=== PATIENT | male | born 1945 | race Caucasian/White ===

== ENCOUNTER → 2018-01-26 | Day surgery (SDC) | payer OTHER ==
[~2018-01-26] VITALS: Ht 190.5 cm; Wt 107.6 kg
[~2018-01-26] MED LIST: ACETAMINOPHEN 1000 MG/100 ML 100 ML IV ONE; BUPIVACAINE/EPINEPHRINE 0.5% PF 30 ML VIAL ONE; CHLORHEXIDINE GLUCONATE 2 % 1 PACK (2 CLOTHS) TOPICAL PRN; CYCL10TA PO; DEXAMETHASONE SOD PHOS 4 MG/ML VIAL IV ONE; GLYCOPYRROLATE 1 MG/5 ML SYRINGE IV PUSH ONE; LABETALOL HCL 100 MG/20 ML VIAL IV ONE; LACTATED RINGER'S 1000 ML INJ 1,000 ML IV ONE; LACTATED RINGER'S 1000 ML IV PRN; LIDOCAINE HCL 1% PF 5 ML SYRINGE OTHER ONE; METOPROLOL TARTRATE 25 MG TAB PO PRN; MIDAZOLAM HCL 2 MG/2 ML VIAL ONE; MORPHINE SULFATE 4 MG/ML INJ ONE; NEOSTIGMINE 5 MG/5 ML SYRINGE IV PUSH ONE; NORC5TAB PO; ONDANSETRON HCL 4 MG/2 ML VIAL IV PUSH ONE; PANT40TA3 PO; PHENYLEPH/NS 1000 MCG/10 ML SYR IV ONE; POVIDONE IODINE 5% (ANTISEPSIS KIT) 4 APPLICATIONS EACH NARE PRN; PROPOFOL 200 MG/20 ML AMP IV ONE; ROCURONIUM INJ 50 MG/5 ML SYRINGE IV PUSH ONE; SODIUM CHLORID 0.9% 500 ML IV PRN; ceFAZolin 2 GM/DEX PREMIX 50 ML IV SCH; ePHEDrine/NS 25 MG/5 ML SYRINGE IV ONE
[2018-01-26 07:18] LABS: AUTOMATED NEUTROPHIL # 2.2 TH/MM3 (1.8-7.7); BASOPHIL % 0.5 % (0.0-2.0); EOSINOPHIL # 0.2 TH/MM3 (0-0.4); EOSINOPHIL % 5.1 % (0.0-4.0); HEMATOCRIT 34.4 % (39.0-51.0); HEMOGLOBIN 11.7 GM/DL (13.0-17.0); LYMPH % 23.7 % (9.0-44.0); LYMPHOCYTE # 0.9 TH/MM3 (1.0-4.8); MEAN CORPUSCULAR HEMOGLOBIN 33.8 PG (27.0-34.0); MEAN CORPUSCULAR HGB CONC 34.1 % (32.0-36.0); MEAN PLATELET VOLUME 7.1 FL (7.0-11.0); MONO % 14.7 % (0.0-8.0); MONOCYTE # 0.6 TH/MM3 (0-0.9); PLATELET COUNT 207 TH/MM3 (150-450); RED BLOOD COUNT 3.48 MIL/MM3 (4.50-5.90); RED CELL DISTRIBUTION WIDTH 12.8 % (11.6-17.2); WHITE BLOOD COUNT 3.9 TH/MM3 (4.0-11.0)
[2018-01-26 07:34] LABS: BICARBONATE 24.5 MEQ/L (21.0-32.0); CALCIUM 9.5 MG/DL (8.5-10.1); CREATININE 1.3 MG/DL (0.60-1.30)
--- NOTE | 2018-01-26 10:22 | PD.OP ---
cc: Carson Serrano MD Operative Report Date of Surgery: January 26, 2018 Preoperative Diagnosis: Hiatal hernia, GERD Postoperative Diagnosis: same Procedure: Laparoscopic repair hiatal hernia with [place] bio a mesh, magnetic sphincter augmentation with L IN X size 17 Anesthesia: General endotracheal anesthesia Surgeon: Carson Serrano Croze Cutter Helper(s): Shai Sorensen Operation and Findings: This procedure is an advanced laparoscopic procedure which requires and benefits from assistance from a residency trained specialized surgeon. Dr. Sorensen has advanced training in minimally invasive surgery and his expertise was required to facilitate exposure and provide additional efficiency and safety in the completion of the procedure. Indications for procedure Patient is a pleasant 72-year-old gentleman sent to me in consultation by Dr. Chiang for evaluation of reflux. The patient has had reflux as long as he can remember. He has had an EGD which showed biopsy- proven reflux esophagitis and a hiatal hernia. He underwent marshmallow bagel swallow study which demonstrated no evidence of esophageal motility. He was desirous of proceeding with surgical antireflux procedure. Intraoperative findings Hiatal hernia containing superior aspect of stomach and large ball of intraperitoneal fatty tissue. Primary repair of diaphragmatic crura with bio a pledget. A reverse C-shaped piece of onlay bio a and size 17 LINX placement. Estimated blood loss Less than 20 cc. Description of procedure in detail The patient was identified as Joe Cruz, taken to the operating room placed in a supine position. Sequential compression device were placed on bilateral lower extremities. Following induction of adequate general endotracheal anesthesia the patient's abdomen was prepped and draped in usual sterile fashion with Betadine. A timeout procedure was performed. Following completion timeout procedure everyone's satisfaction within the room and a vertical incision about 2-3 cm in length about 6 cm superior to the umbilicus was infiltrated with local anesthetic and incision carried out with a scalpel. Dissection continued posteriorly over the midline fascia. This was incised in vertical fashion and entry into the peritoneal cavity facilitated with the surgeon's finger. The applied medical balloon Reeves trocar was placed into the peritoneal cavity, its balloon inflated, and CO2 insufflation to a level of 15 mmHg ensued. The patient was placed in a steep reverse Trendelenburg position. For upper abdominal 5 mm trochars were placed into the peritoneal cavity under direct laparoscopic view after incision in the skin with a scalpel. The long félix flex liver retractor was placed beneath a very bulky generous left lateral lobe the liver retracted anteriorly and held position of the robot arm. Attention was then turned to opening the gastrohepatic ligament. Using the harmonic scalpel the gastrohepatic ligament was opened allowing for identification of the right diaphragmatic crura. Adherent peritoneal fat was reduced from a moderate sized hiatal hernia using a combination of blunt dissection and the harmonic scalpel. A large ball of fat had to be mobilized out of the mediastinum back into the peritoneal cavity. This allowed for identification of the left side diaphragmatic crura inferiorly. In order to see the left side diaphragmatic crura of the fundus of the stomach was mobilized along the greater curvature superiorly dividing short gastric vessels using the harmonic scalpel. This allowed for full evaluation of left diaphragmatic crura dissection of adherent peritoneal fat off of the diaphragmatic crura. The esophagus was mobilized in the mediastinum dividing adventitial tissue using the harmonic scalpel lengthening the distance of the esophagus in the abdominal cavity. Attention was then turned to identification of the posterior vagus nerve and a window between the nerve and the posterior wall of the esophagus was created with blunt dissection. 1/4 inch Adel drain was placed through this opening to facilitate retraction of the esophagus at the GE junction. Attention was then turned to closure of the diaphragmatic crura. Using a rectangular shaped piece of [place] bio a mesh as an internal pledget the diaphragmatic crura were approximated with 4 interrupted 0 Ethibond sutures using the suture data control assistant device. An additional piece of [place] bio a mesh U- shaped placed in a reverse C position around the diaphragm was held in position to the 6:00 and 10:00 positions with interrupted 0 Ethibond sutures using the suture data control assistant device. All materials from inside the esophagus were moved removed by the nurse prestressed concrete laborer. The esophageal sizing device was then placed in the peritoneal cavity through the window between the posterior vagus nerve and the esophagus and an appropriate sized Lynx was selected. The sizing device popped off at 14 and 15 in a slight indentation at 16 in the esophagus and therefore a size 17 Linx was selected. The magnetic sphincter augmentation device was placed in the peritoneum through the posterior window between the esophagus and the posterior vagus nerve and clasped anteriorly in a traditional fashion. The sutures attached to the magnetic sphincter augmentation device were removed in the standard fashion. Photographs were taken of the completed repair. Remaining local anesthetic was placed in the subdiaphragmatic position. The dominant flex liver retractor was removed and there was no evidence of bleeding or injury of significance to the liver. Trochars removed under direct visualization there is no evidence of bleeding from trocar sites. Prior to removing the trochars the gallbladder was evaluated and there were inflammatory adhesions to the gallbladder. Photograph was taken. The abdomen was actively desufflated through the supraumbilical midline port which was then removed. Supraumbilical midline fascial incision was closed with 2 interrupted [id number] 0 Vicryl sutures. Skin incisions were approximated with 4-0 Monocryl subcuticular sutures. Dressings were applied with Mastisol half-inch brown Steri-Strips. The patient tolerated the procedure without apparent complication. Sponge needle and instrument counts were correct at the end of the case. Patient was transported to PACU in stable condition. Carson Serrano MD January 26, 2018 10:22
[2018-01-26 11:01] VITALS: TEMP 97.7
[2018-01-26 11:40] VITALS: BP 148/86; PULSE 68; RESP 18; O2SAT 97
--- NOTE | 2018-01-26 20:50 | EKG ---
Date Performed: 01/26/2018 Time Performed: 06:57:34 PTAGE: 72 years EKG: SINUS BRADYCARDIA LEFT VENTRICULAR HYPERTROPHY AND ST-T CHANGE Since previous tracing, no s ignificant change noted ABNORMAL ECG PREVIOUS TRACING : 01/23/2016 08.09 DOCTOR: Ubaldo Walls Interpretating Date/Time 01/26/2018 20:49:01
== END | disposition home or self-care (01) ==
LOC: HSDC 05:58
PROVIDERS: ATTEND Surgery Trauma Surgery
DX: K44.9 Diaphragmatic hernia without obstruction or gangrene (principal); K21.9 Gastro-esophageal reflux disease without esophagitis; R00.1 Bradycardia, unspecified
CPT/HCPCS: 00790; 43284; 80048; 85025; 93005; 94150; C1781; J0131; J1100; J2250; J2270; J2370; J2405; J2710; J3010; J7120